=== PATIENT | male | born 1960 | race Caucasian/White ===

== ENCOUNTER 2017-02-17 09:25 | Emergency (ER) | payer OTHER ==
[2017-02-17 09:30] VITALS: TEMP 98.4
--- NOTE | 2017-02-17 09:36 | EDPHY ---
HPI/HX/ROS/PE/MDM Narrative: CHIEF COMPLAINT: Back pain HPI: The patient is a 56 y/o male complaining of back pain and spasms that began 1.5 hours ago. On Wednesday, 3 days ago, he tweaked his back. While at work today he was lifting some trays when he felt his left back start to spasm. The spasms and pain are down his left side, with mild pain on his right. The pain is exacerbated when he moves. He is currently nauseous, which he attributes to the pain. Denies numbness, radiating pain, abdominal pain, fever or other pertinent symptoms. REVIEW OF SYSTEMS: Aside from elements discussed in the HPI, a comprehensive 10-point review of systems was reviewed and is negative. PMH: Hypertension, left total hip replacement, appendectomy SOCIAL HISTORY: Works for [employer], , lives in [place] PHYSICAL EXAM: General:Patient is alert, in no acute distress. ENT:Eyes are normal to inspection. ENT inspection normal. Neck: Normal inspection. Full range of motion. Respiratory:No respiratory distress. Breath sounds normal bilaterally. Cardiovascular: Regular rate and rhythm. Strong peripheral pulses. Normal cap refill. Abdomen:The abdomen is nontender to palpation. There are no peritoneal signs. There are normal bowel sounds. Back: Moderate left and mild left back pain tenderness. Normal to inspection. Skin: Normal color. No rash. Warm and dry. Extremities: Normal appearance. Full range of motion. Neuro: Oriented x3. Normal motor function. Normal sensory function. Portions of this note were transcribed by an ED scribe. I personally performed the history, physical exam, and medical decision making; and confirm the accuracy of the information in the transcribed note. ED Course: The patient is a 56 y/o male presenting with moderate left and mild right back pain tenderness, onset 1.5 hours ago. 1040: The patients lumbar spine x-ray shows there is mild multilevel degenerative disk disease, but no osseous injury. Plan on lumbar CT. 1226: Spoke with radiologist, he reports the patients lumbar CT is negative for acute findings. 1228: Reassessed patient and discussed imaging and laboratory results. He will be referred for an outpatient followup with Dr. Russ, neurologist. Return precautions provided; patient is comfortable with this plan. MDM: This patient presents with acute back pain without trauma or signs of spinal cord emergency. CT was performed to exclude other causes of flank pain such as kidney stone, AAA, bowel obstruction, and this is negative. The patient would likely benefit from an MRI but this can be done as an outpatient. Patient's pain was well-controlled with medications and I will send him home with rx for flexeril, oxycodone, medrol and lidocaine patch. - Data Points Imaging Results: Imaging Impressions Lumbar Spine X-Ray 02/17/17 09:46 Impression: 1. No acute fracture, pars defect, or bone lesion. 2. Mild multilevel degenerative disk disease. Abdomen/Pelvis CT 02/17/17 11:43 Impression: 1. No acute findings. 2. Diverticulosis without evidence of diverticulitis. 3. Mild fatty infiltration of the liver. 4. Additional findings as above. Findings discussed with Francisco Lakhani M.D. on February 17, 2017 at 12:26 p.m. Attention: This CT examination is specifically designed to evaluate patients who are clinically suspected of having acute obstructive uropathy. This examination does not use radiographic contrast, and as such, provides only a limited evaluation of the abdomen, pelvis and retroperitoneum. If there is further clinical suspicion for pathological conditions other than obstructive uropathy, a complete CT evaluation of the abdomen and pelvis utilizing intravenous and oral contrast should be considered. Imaging: Discussed imaging studies w/ order desk caller Radiologist, I viewed and interpreted images myself Laboratory Results: Laboratory Results 02/17/17 09:15 02/17/17 09:15 02/17/17 02/17/17 02/17/17 10:45 09:15 09:15 WBC 6.81 10^3/uL 10^3/uL (3.80-9.50) RBC 5.31 10^6/uL 10^6/uL (4.40-6.38) Hgb 16.6 g/dL g/dL (13.7-17.5) Hct 47.7 % % (40.0-51.0) MCV 89.8 fL fL (81.5-99.8) MCH 31.3 pg pg (27.9-34.1) MCHC 34.8 g/dL g/dL (32.4-36.7) RDW 12.3 % % (11.5-15.2) Plt Count 255 10^3/uL 10^3/uL (150-400) MPV 9.3 fL fL (8.7-11.7) Neut % (Auto) 56.9 % % (39.3-74.2) Lymph % (Auto) 30.4 % % (15.0-45.0) Gove % (Auto) 5.6 % % (4.5-13.0) Eos % (Auto) 5.4 % % (0.6-7.6) Baso % (Auto) 1.0 % % (0.3-1.7) Nucleat RBC Rel Count 0.0 % % (0.0-0.2) Absolute Neuts (auto) 3.87 10^3/uL 10^3/uL (1.70-6.50) Absolute Lymphs (auto) 2.07 10^3/uL 10^3/uL (1.00-3.00) Absolute Monos (auto) 0.38 10^3/uL 10^3/uL (0.30-0.80) Absolute Eos (auto) 0.37 10^3/uL 10^3/uL (0.03-0.40) Absolute Basos (auto) 0.07 10^3/uL 10^3/uL (0.02-0.10) Absolute Nucleated RBC 0.00 10^3/uL 10^3/uL (0-0.01) Immature Gran % 0.7 % % (0.0-1.1) Immature Gran # 0.05 10^3/uL 10^3/uL (0.00-0.10) Sodium 138 mEq/L mEq/L (134-144) Potassium 5.3 mEq/L H mEq/L (3.5-5.2) Chloride 103 mEq/L mEq/L (97-110) Carbon Dioxide 21 mEq/l L mEq/l (22-31) Anion Gap 14 mEq/L mEq/L (8-16) BUN 19 mg/dL mg/dL (7-23) Creatinine 1.0 mg/dL mg/dL (0.7-1.3) Estimated GFR > 60 Glucose 84 mg/dL mg/dL (70-100) Calcium 10.1 mg/dL mg/dL (8.5-10.4) Urine Color YELLOW Urine Appearance CLEAR Urine pH 5.0 (5.0-7.5) Ur Specific Windfall 1.009 (1.002-1.030) Urine Protein NEGATIVE (NEGATIVE) Urine Ketones NEGATIVE (NEGATIVE) Urine Blood NEGATIVE (NEGATIVE) Urine Nitrate NEGATIVE (NEGATIVE) Urine Bilirubin NEGATIVE (NEGATIVE) Urine Urobilinogen NEGATIVE EU EU (0.2-1.0) Ur Leukocyte Esterase NEGATIVE (NEGATIVE) Urine Glucose NEGATIVE (NEGATIVE) Medications Given: Discontinued Medications Hydromorphone HCl (Dilaudid) 0.5 mg IVP EDNOW ONE Stop: 02/17/17 09:44 Last Admin: 02/17/17 09:51 Dose: 0.5 mg Sodium Chloride (Ns) 1,000 mls @ 0 mls/hr IV EDNOW ONE; Wide Open PRN Reason: Protocol Stop: 02/17/17 09:44 Last Admin: 02/17/17 10:05 Dose: 1,000 mls Ketorolac Tromethamine (Toradol) 15 mg IVP EDNOW ONE Stop: 02/17/17 09:44 Last Admin: 02/17/17 09:52 Dose: 15 mg Ondansetron HCl (Zofran) 4 mg IVP EDNOW ONE Stop: 02/17/17 09:44 Last Admin: 02/17/17 09:51 Dose: 4 mg General Time Seen by Provider: 02/17/17 09:31 Initial Vital Signs: Initial Vital Signs Temperature (C) 36.9 C 02/17/17 09:28 Heart Rate 67 02/17/17 09:28 Respiratory Rate 17 02/17/17 09:28 Blood Pressure 143/108 H 02/17/17 09:28 O2 Sat (%) 98 02/17/17 09:28 O2 Delivery Mode Room Air Allergies/Adverse Reactions: Sulfa (Sulfonamide Antibiotics) Allergy (Verified 02/17/17 09:28) Home Medications: Medication Instructions Recorded Cyclobenzaprine [Flexeril] 10 mg PO TID #15 tab 02/17/17 Lidocaine 5% [Lidoderm 5% Patch 1 ea TD DAILY #3 patch 02/17/17 (*)] Lisinopril 02/17/17 methylPREDNISolone [Medrol Dose 1 each PO AD #1 ea 02/17/17 Chele] oxyCODONE/APAP 5/325 [Percocet 1 - 2 tab PO Q4H PRN #10 tab 02/17/17 5/325 (*)] Departure - Departure Disposition: Home, Routine, Self-Care Clinical Impression: Low back pain Qualifiers: Chronicity: unspecified Back pain laterality: left Sciatica presence: without sciatica Qualified Code(s): M54.5 - Low back pain Condition: Good Instructions: Acute Low Back Pain (ED), Back Pain (ED) Additional Instructions: Followup with a neurologist within one week. Return to the emergency department for severe pain, fever, numbness, difficulty walking, change in location or nature of pain or other concerns. Use ibuprofen and Tylenol as directed. Try using a heating pad. Referrals: Fredo Ross DO [Primary Care Provider] - As per Instructions Mert Russ MD [Medical Doctor] - As per Instructions Prescriptions: Cyclobenzaprine [Flexeril] 10 mg PO TID #15 tab Lidocaine 5% [Lidoderm 5% Patch (*)] 1 ea TD DAILY #3 patch methylPREDNISolone [Medrol Dose Chele] 1 each PO AD #1 ea oxyCODONE/APAP 5/325 [Percocet 5/325 (*)] 1 - 2 tab PO Q4H PRN #10 tab PRN Reason: Pain, Severe Report Scribed for: Francisco Lakhani Report Scribed by: Beth Solorio Date of Report: 02/17/17 Time of Report: 09:32
[2017-02-17] MEDS ORDERED: NS 1,000 ML IV ONE (09:43)
[2017-02-17] MEDS ORDERED: KETOROLAC 30 MG/1 ML SDV IVP ONE (09:43)
[2017-02-17] MEDS ORDERED: ONDANSETRON 4 MG/2 ML VIAL IVP ONE (09:43)
[2017-02-17] MEDS ORDERED: HYDROmorphONE/DILAUDID 1 MG/ML INJ IVP ONE (09:43)
[2017-02-17] MEDS ORDERED: ONDANSETRON 4 MG/2 ML VIAL ONE (09:45)
[2017-02-17] MEDS ORDERED: KETOROLAC 15 MG/1 ML SDV ONE (09:45)
[2017-02-17] MEDS ORDERED: HYDROmorphONE/DILAUDID 1 MG/ML INJ ONE (09:45)
[2017-02-17 10:08] LABS: % IMMATURE GRANULYOCYTES 0.7 % (0.0-1.1); ABSOLUTE IMMATURE GRANULOCYTES 0.05 10^3/uL (0.00-0.10); ADD DIFF? NO; ADD MORPH? NO; ADD SCAN? NO; ATYPICAL LYMPHOCYTE FLAG 0 (0-99); FRAGMENT RBC FLAG 0 (0-99); HEMATOCRIT 47.7 % (40.0-51.0); HEMOGLOBIN 16.6 g/dL (13.7-17.5); LEFT SHIFT FLG 0 (0-99); LIPEMIA HEMOLYSIS FLAG 90 (0-99); MEAN CELL HEMOGLOBIN 31.3 pg (27.9-34.1); MEAN CELL HEMOGLOBIN CONCENTR. 34.8 g/dL (32.4-36.7); MEAN CELL VOLUME 89.8 fL (81.5-99.8); MEAN PLATELET VOLUME 9.3 fL (8.7-11.7); PLATELET CLUMPS FLAG 10 (0-99); PLATELET COUNT 255 10^3/uL (150-400); RED BLOOD CELL COUNT 5.31 10^6/uL (4.40-6.38); RED CELL DISTRIBUTION WIDTH 12.3 % (11.5-15.2)
[2017-02-17 10:33] LABS: ANION GAP 14 mEq/L (8-16); CALCIUM 10.1 mg/dL (8.5-10.4); CARBON DIOXIDE 21 mEq/l (22-31); CHLORIDE 103 mEq/L (97-110); GLOMERULAR FILTRATION RATE > 60; GLUCOSE 84 mg/dL (70-100); POTASSIUM 5.3 mEq/L (3.5-5.2); SODIUM 138 mEq/L (134-144)
[2017-02-17 11:10] LABS: COLOR YELLOW; LEUKOCYTE ESTERASE,URINE NEGATIVE (NEGATIVE); NITRITE,URINE NEGATIVE (NEGATIVE)
[2017-02-17 12:29] VITALS: BP 138/91; PULSE 57; RESP 15; O2SAT 96
[2017-02-17] MEDS ORDERED: LIDOCAINE 5% 1 EA PATCH TD ONE (12:31)
== END 2017-02-17 12:47 | disposition home or self-care (01) ==
DX: M54.5 Low back pain (principal); I10 Essential (primary) hypertension; E86.9 Volume depletion, unspecified
CPT/HCPCS: 96374; J1170; J1885; J2405

== ENCOUNTER 2018-11-02 08:49 | Day surgery (SDC) | payer OTHER | END 2018-11-04 10:45 | disposition home or self-care (01) | LOC: FSGY 11-04 05:47 ==